=== PATIENT | female | born 1995 | race Caucasian/White ===

== ENCOUNTER → 2020-01-09 13:19 | Outpatient (CLI) | payer BC, SELFPAY ==
--- NOTE | 2020-01-09 13:22 | US_ITS ---
STUDY: SUPERFICIAL ULTRASOUND - RIGHT AXILLARY REGION. REASON FOR EXAM: Female, 24 years old. AREA OF PALP LUMP IN RT AXILLA TECHNIQUE: A superficial ultrasound was performed with real-time and static leon-scale imaging. COMPARISON: None. FINDINGS: There are 2 benign appearing lymph nodes in the right axillary region. The larger measures 1.7 cm x 2.1 cm x 0.5 cm. US/Ext Non Vasc Limited/Soft Tiss IMPRESSION: There are 2 benign-appearing right axillary lymph nodes. The larger measures 1.7 cm x 2.1 cm x 0.5 cm. Electronically Signed: Abram Mejias, at 15:02 EST , Service support ,
== END ==
PROVIDERS: Referring Provider Dermatology; Visit Provider Dermatology
DX: D48.5 Neoplasm of uncertain behavior of skin (principal)
CPT/HCPCS: 76882